=== PATIENT | female | born 2005 | race African-American/Black ===

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

== ENCOUNTER 2024-03-23 19:21 | Emergency (ER) | payer OTHER, SELFPAY ==
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
[2024-03-23 19:29] VITALS: BP 120/75; BP 124/82; PULSE 80; PULSE 90; RESP 16; TEMP 36.8; O2SAT 95; O2SAT 98; BMI 27.1
--- NOTE | 2024-03-23 19:43 | ECG_ITS ---
Test Reason : CP Blood Pressure : / mmHG Vent. Rate : 079 BPM Atrial Rate : 079 BPM P-R Int : 164 ms QRS Dur : 084 ms QT Int : 378 ms P-R-T Axes : 041 055 024 degrees QTc Int : 433 ms Normal sinus rhythm Normal ECG No previous ECGs available Referred By: Ciera Dumont Electronically Signed By:BEST CAMPUZANO MD
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
[2024-03-23 20:06] LABS: MANUAL DIFF FLAG NO
[2024-03-23 20:10] LABS: Basophils Absolute Auto 0.1 X10*3/uL (0.0-0.2); Basophils Percent Auto 1.2 % (0-2); Eosinophils Percent Auto 0.8 % (0-4); Hematocrit 36.3 % (37.0-47.0); Hemoglobin 12.5 g/dl (12.0-16.0); Imm Gran Abs Auto 0.02 X10*3/uL (0.00-0.03); Imm Gran Pct Auto 0.4 % (0.0-0.4); Lymphocytes Absolute Auto 1.9 X10*3/uL (1.2-4.9); Lymphocytes Percent Auto 40.3 % (20-40); Mean Corpuscular HGB Conc 34.4 g/dl (31.0-35.0); Mean Corpuscular Hemoglobin 29.4 pg (27.0-33.0); Mean Corpuscular Volume 85.4 fL (80.0-98.0); Mean Platelet Volume 10.5 fL (9.4-12.3); Monocytes Absolute Auto 0.5 X10*3/uL (0.1-1.2); Monocytes Percent Auto 10.6 % (2-11); Neutrophils Absolute Auto 2.2 x10*3/uL (2.0-8.3); Neutrophils Percent Auto 46.7 % (45-73); Platelet Count 286 X10*3/uL (160-400); Red Blood Count 4.25 X10*6/uL (4.20-5.50); Red Cell Distribution Width 13.8 % (11.0-16.0); White Blood Count 4.8 X10*3/uL (4.8-10.8)
[2024-03-23 20:11] LABS: UPreg QC Valid YES; Urine Pregnancy NEGATIVE (NEGATIVE)
[2024-03-23 20:21] LABS: Amphetamine Screen Urine Not Detected (Not Detect); Barbiturates, Urine Not Detected (Not Detect); Benzodiazepines Screen Urine Not Detected (Not Detect); Buprenorphine Scr Not Detected (Not Detect); Cannabinoid Screen Urine POSITIVE (Not Detect); Cocaine Screen Urine Not Detected (Not Detect); Fentanyl, urine Not Detected (Not Detect); Methadone Screen, Urine Not Detected (Not Detect); Opiate Screen Urine Not Detected (Not Detect); Oxycodone Screen Urine Not Detected (Not Detect); Phencyclidine Screen Urine Not Detected (Not Detect)
[2024-03-23] MEDS: 0.9 % Sodium Chloride 1,000 ML 999 ML IV (20:24)
[2024-03-23 20:26] LABS: Alanine Aminotransferase 25 U/L (0-31); Albumin Level 4.7 g/dL (3.5-5.0); Alkaline Phosphatase 100 U/L (39-117); Anion Gap 15 (12-20); Aspartate Amino Transferase 36 U/L (5-31); Bilirubin Direct 0.1 mg/dL (0.0-0.5); Bilirubin Total 0.4 mg/dL (0.0-1.0); Blood Urea Nitrogen 14 mg/dL (9-16); Carbon Dioxide 28 mmol/L (22-29); Chloride 104 mmol/L (96-108); Creatinine Clr Calc Pharmacy 101.7; Estimated Glomerular Filt Rate > 60; Ethanol 179 mg/dL; Glucose Random 97 mg/dL (60-115); Potassium 3.9 mmol/L (3.3-5.1); Sodium 143 mmol/L (135-145); Total Protein 8.1 g/dL (6.5-8.0)
[2024-03-23 21:57] VITALS: BP 114/76; PULSE 79; RESP 16; TEMP 36.6; O2SAT 97
--- NOTE | 2024-03-23 23:14 | PC.NURSE ---
pt talking nonstop no sob, no dizziness, pt is intoxicated and waiting a sober ride home.
--- NOTE | 2024-03-23 23:49 | PC.NURSE ---
pt trying to get a sober ride home and states she is going to call the college.
--- NOTE | 2024-03-24 00:08 | PC.NURSE ---
pt talking on her phone and holding it in her right hand occluding the flow of the ivf. pt instructed multiple times to home the cell phone in her left hand. pt is calling for a ride from the college and will be here in approc 15-20 min.
[2024-03-24 00:33] VITALS: BP 118/78; PULSE 81; RESP 17; TEMP 36.6; O2SAT 98
[2024-03-24 00:43] VITALS: BP 141/87; PULSE 86; RESP 16; TEMP 36.6; O2SAT 99
[2024-03-24 00:45] VITALS: BP 141/87; PULSE 86; RESP 16; TEMP 36.6; O2SAT 99
== END 2024-03-24 00:47 | disposition home or self-care (01) ==
PROVIDERS: Emergency Provider Emergency Medicine Emergency Medical Services
DX: S09.90XA Unspecified injury of head, initial encounter (principal); F10.129 Alcohol abuse with intoxication, unspecified; R07.89 Other chest pain; Y90.6 Blood alcohol level of 120-199 mg/100 ml; W06.XXXA Fall from bed, initial encounter; Y92.092 Bedroom in other non-institutional residence as the place of occurrence of the external cause; Y93.89 Activity, other specified; Y99.8 Other external cause status; Z51.81 Encounter for therapeutic drug level monitoring; Z79.899 Other long term (current) drug therapy
CPT/HCPCS: 36415; 70450; 70486; 80048; 80076; 80307; 81025; 85025; 93005; 96360; 99284; 99285

== ENCOUNTER → 2024-03-23 19:43 | Outpatient (BNV) | payer SELFPAY | PROVIDERS: Emergency Provider Emergency Medicine Emergency Medical Services; Visit Provider Internal Medicine Cardiovascular Disease | DX: R07.9 Chest pain, unspecified (principal) | CPT/HCPCS: 93010 ==